=== PATIENT | male | born 1955 | race African-American/Black ===

== ENCOUNTER 2016-10-26 18:05 | Emergency (ER) | payer OTHER ==
[~2016-10-26] VITALS: Ht 182.9 cm; Wt 92.0 kg
[~2016-10-26 18:05] MED LIST: ASPI-1035 PO; ATOR20TA65 PO; LEVO100T9 PO; LISI10TA5 PO
[2016-10-26 22:18] LABS: BASOPHILS % 1.3 % (0.0-2.0); EOSINOPHILS % 3.8 % (0.0-5.0); HEMATOCRIT. 40.3 % (42.0-52.0); HEMOGLOBIN. 13.2 g/dL (14.0-18.0); LYMPHOCYTES % 42.5 % (20.0-50.0); MEAN CORPUSCULAR HEMOGLOBIN 29.1 pg (28.0-32.0); MEAN CORPUSCULAR HGB CONC 32.7 g/dL (31.0-37.0); MONOCYTES % 7.2 % (2.0-8.0); NEUTROPHILS % 45.2 % (40.0-76.0); PLATELET 291 x1000/uL (130-400); RED BLOOD CELL COUNT 4.53 mill/uL (4.7-6.1); RED CELL DISTRIBUTION WIDTH 14.4 % (11.6-14.6); WHITE BLOOD COUNT 5.2 x1000/uL (4.5-11.0)
[2016-10-26 22:35] LABS: ALANINE AMINOTRANSFERASE 24 IU/L (13-61); ALBUMIN 3.8 g/dL (3.4-5.0); ANION GAP 9; CALCIUM 9.1 mg/dL (8.5-10.1); CARBON DIOXIDE 30 mEq/L (21-32); CHLORIDE 106 mEq/L (98-107); INDEX HEMOLYSI 1 (1-3); INDEX ICTERIC 1 (1-4); INDEX LIPEMIC 1 (1-3); LIPASE 83 IU/L (73-393); TROPONIN I < 0.02 ng/mL (0.00-0.04); UREA NITROGEN BLOOD 12 mg/dL (7-21); eGFR > 60 mL/min (>60)
[2016-10-26] MEDS ORDERED: NITROGLYCERIN OINT 1GM/INCH UDPKT TD NR (22:45)
[2016-10-26 23:36] VITALS: BP 141/88
== END 2016-10-26 23:42 | disposition home or self-care (01) ==
LOC: ER 21:49
DX: R07.89 Other chest pain (principal); R06.02 Shortness of breath; I10 Essential (primary) hypertension; E03.9 Hypothyroidism, unspecified; Z88.8 Allergy status to other drugs, medicaments and biological substances; Z79.82 Long term (current) use of aspirin; Z79.899 Other long term (current) drug therapy; Z90.79 Acquired absence of other genital organ(s); Z98.890 Other specified postprocedural states
CPT/HCPCS: 36415; 71010; 80053; 83690; 84484; 85025; 93005; 99285; Z7610

== ENCOUNTER 2016-12-23 07:04 | Emergency (ER) | payer SELFPAY ==
[~2016-12-23] VITALS: Ht 182.9 cm; Wt 97.0 kg
[2016-12-23 09:44] VITALS: BP 136/97
== END 2016-12-23 09:57 | disposition home or self-care (01) ==
LOC: ER 08:06
DX: I10 Essential (primary) hypertension (principal); E78.00 Pure hypercholesterolemia, unspecified; Z98.890 Other specified postprocedural states; Z92.29 Personal history of other drug therapy
CPT/HCPCS: 93005; 99283

== ENCOUNTER 2016-12-29 12:57 | Emergency (ER) | payer SELFPAY ==
[~2016-12-29] VITALS: Ht 172.7 cm; Wt 70.0 kg
[2016-12-29 14:19] VITALS: BP 142/97
== END 2016-12-29 16:33 | disposition left against medical advice (07) ==
LOC: ER 14:44
DX: Z53.21 Procedure and treatment not carried out due to patient leaving prior to being seen by health care provider (principal)

== ENCOUNTER 2017-04-16 00:10 | Emergency (ER) | payer SELFPAY ==
[~2017-04-16] VITALS: Ht 182.9 cm; Wt 100.0 kg
[~2017-04-16 00:10] MED LIST changes: -ASPI-1035 PO; +ASPI-1159 PO
[2017-04-16 00:29] VITALS: BP 140/94
== END 2017-04-16 02:10 | disposition left against medical advice (07) ==
LOC: ER 00:10
DX: T78.40XA Allergy, unspecified, initial encounter (principal); Z53.21 Procedure and treatment not carried out due to patient leaving prior to being seen by health care provider

== ENCOUNTER 2017-04-19 17:04 | Emergency (ER) | payer SELFPAY ==
[~2017-04-19] VITALS: Ht 182.9 cm; Wt 100.0 kg
[2017-04-19 17:09] VITALS: BP 165/100
[2017-04-19] MEDS ORDERED: NEBI5TAB3 PO (17:15)
== END 2017-04-19 23:53 | disposition left against medical advice (07) ==
LOC: ER 17:04
DX: Z53.21 Procedure and treatment not carried out due to patient leaving prior to being seen by health care provider (principal)

== ENCOUNTER 2018-01-12 02:15 | Emergency (ER) | payer MEDICAID ==
[~2018-01-12] VITALS: Ht 182.9 cm; Wt 91.0 kg
[~2018-01-12 02:15] MED LIST changes: +ATOR20TA PO; -ATOR20TA65 PO; +DOCU-138 PO; -LISI10TA5 PO; +NEBI5TAB3 PO
[2018-01-12 02:33] VITALS: BP 141/97
== END 2018-01-12 05:32 | disposition left against medical advice (07) ==
LOC: ER 02:15
DX: I10 Essential (primary) hypertension (principal); Z53.21 Procedure and treatment not carried out due to patient leaving prior to being seen by health care provider

== ENCOUNTER 2018-09-10 15:56 | Emergency (ER) | payer MEDICAID, OTHER ==
[~2018-09-10] VITALS: Ht 177.8 cm; Wt 89.0 kg
[2018-09-10 18:05] VITALS: BP 141/91
== END 2018-09-10 18:08 | disposition home or self-care (01) ==
LOC: ER 15:56
DX: I10 Essential (primary) hypertension (principal)
CPT/HCPCS: 99283

== ENCOUNTER 2018-12-10 17:59 | Emergency (ER) | payer OTHER ==
[~2018-12-10] VITALS: Ht 182.9 cm; Wt 100.0 kg
[2018-12-10 18:42] VITALS: BP 136/93
== END 2018-12-11 02:02 | disposition left against medical advice (07) ==
LOC: ER 17:59
DX: I10 Essential (primary) hypertension (principal); Z53.21 Procedure and treatment not carried out due to patient leaving prior to being seen by health care provider
CPT/HCPCS: 93005

== ENCOUNTER 2019-03-25 16:09 | Inpatient (IN) | payer OTHER, MEDICAID ==
[~2019-03-25] VITALS: Ht 182.9 cm; Wt 103.0 kg
[~2019-03-25 16:09] MED LIST changes: -ASPI-1159 PO; +ASPI-1393 PO
[2019-03-25] MEDS ORDERED: ASPIRIN 81MG TABLET PO ONE (21:15)
[2019-03-25 21:33] LABS: BASOPHILS % 0.9 % (0.0-2.0); HEMATOCRIT. 40.6 % (42.0-52.0); HEMOGLOBIN. 13.7 g/dL (14.0-18.0); LYMPHOCYTES % 43.6 % (20.0-50.0); MEAN CORPUSCULAR VOLUME 89.1 fL (80.0-94.0); MEAN PLATELET VOLUME 7.1 fl (7.4-10.4); MONOCYTES % 5.9 % (2.0-8.0); NEUTROPHILS % 46.6 % (40.0-76.0); PLATELET 292 x1000/uL (130-400); RED BLOOD CELL COUNT 4.56 mill/uL (4.7-6.1)
[2019-03-25 21:37] LABS: CHLORIDE 106 mEq/L (98-107)
[2019-03-25 21:41] LABS: ETHANOL BLOOD < 10 mg/dL
[2019-03-25 21:43] LABS: D-DIMER 0.21 mg/L FEU (<0.50); INR 0.9; PROTHROMBIN TIME 9.7 sec (9.6-11.0)
[2019-03-26] MEDS ORDERED: MORPHINE SULFATE 2 MG/ML CPJ (NOT FOR IM USE) IV PRN
[2019-03-26] MEDS ORDERED: ONDANSETRON HCL 4MG/2ML INJ IV PRN
[2019-03-26] MEDS ORDERED: LORAZEPAM 2MG/ML CPJ IV PRN
[2019-03-26] MEDS ORDERED: DOCUSATE SODIUM 100MG CAPSULE PO PRN
[2019-03-26] MEDS ORDERED: DIPHENHYDRAMINE 50MG/ML VIAL IV PRN
[2019-03-26] MEDS ORDERED: GUAIFENESIN 200MG/10ML SUGAR FREE UDC PO PRN
[2019-03-26] MEDS ORDERED: ACETAMINOPHEN 325MG TABLET PO PRN
[2019-03-26] MEDS ORDERED: HYDROCODONE/ACETAMINOPHEN 10/325MG TABLET PO PRN
[2019-03-26] MEDS ORDERED: NA PHOS,M-B/NA PHOS,DI-BA ENEMA 118ML PR PRN
[2019-03-26] MEDS ORDERED: MAGNESIUM/ALUMINUM HYDROXIDE/SIMETHICONE 30ML UDC PO PRN
[2019-03-26] MEDS ORDERED: HYDRALAZINE 20MG/ML VIAL IV PRN
[2019-03-26] MEDS ORDERED: IPRATROPIUM/ALBUTEROL 0.5-3(2.5)MG/3ML NEB INH PRN
[2019-03-26 00:45] VITALS: BP 123/92
[2019-03-26 01:05] LABS: *AMPHETAMINES SCREEN URINE NEGATIVE (NEGATIVE); *BARBITURATES SCREEN URINE NEGATIVE (NEGATIVE)
[2019-03-26 01:06] LABS: *BENZODIAZEPINES SCREEN URINE NEGATIVE (NEGATIVE); *COCAINE SCREEN URINE NEGATIVE (NEGATIVE); METHADONE URINE SCREEN NEGATIVE (NEGATIVE); OPIATES URINE SCREEN NEGATIVE (NEGATIVE); PHENCYCLIDINE URINE SCREEN NEGATIVE (NEGATIVE)
[2019-03-26 01:07] LABS: CANNABINOID URINE SCREEN NEGATIVE (NEGATIVE)
[2019-03-26 04:00] VITALS: BP 129/80
[2019-03-26] MEDS ORDERED: SODIUM CHLORIDE 0.9% INJ 3ML FLUSH IVF SCH (06:00)
[2019-03-26 06:57] LABS: BASOPHILS % 0.5 % (0.0-2.0); EOSINOPHILS % 2.8 % (0.0-5.0); HEMATOCRIT. 39.1 % (42.0-52.0); HEMOGLOBIN. 13.5 g/dL (14.0-18.0); LYMPHOCYTES % 47.5 % (20.0-50.0); MEAN CORPUSCULAR HEMOGLOBIN 30.6 pg (28.0-32.0); MEAN PLATELET VOLUME 7.6 fl (7.4-10.4); MONOCYTES % 7.2 % (2.0-8.0); PLATELET 273 x1000/uL (130-400); RED CELL DISTRIBUTION WIDTH 14.1 % (11.6-14.6)
[2019-03-26 07:43] LABS: CHLORIDE 109 mEq/L (98-107)
[2019-03-26 07:52] LABS: LDL CHOLESTEROL 85 mg/dL (5-100)
[2019-03-26 07:55] LABS: CREATINE KINASE 250 IU/L (39-308); CREATINE KINASE MB FRACTION 1.6 ng/mL (0.5-3.6); T4 FREE 1.12 ng/dL (0.76-1.46)
[2019-03-26 07:56] LABS: HDL CHOLESTEROL 48 mg/dL (40-59)
[2019-03-26 08:00] VITALS: BP 129/92
[2019-03-26] MEDS ORDERED: ENOXAPARIN 30MG/0.3ML SYR SUBCUT SCH (09:00)
[2019-03-26] MEDS ORDERED: ASPIRIN 81MG EC TABLET PO SCH (09:00)
[2019-03-26] MEDS ORDERED: MEDICATION NOT ON FORMULARY EA (Docusate Sodium (Colace) 100 MG) PO PRN (10:30)
[2019-03-26 10:45] VITALS: BP 129/92
[2019-03-26] MEDS ORDERED: LEVOTHYROXINE SODIUM 100MCG TABLET PO SCH (11:00)
[2019-03-26] MEDS ORDERED: NEBIVOLOL HCL 5 MG TABLET PO SCH (11:30)
[2019-03-26] MEDS ORDERED: ATORVASTATIN CALCIUM 20MG TABLET PO SCH (21:00)
== END 2019-03-26 12:10 | disposition home or self-care (01) | DRG 304 ==
LOC: ER 16:09 → 6WST 23:11 → EDBEDREQ 23:13 → EDBEDREQTM 23:13
PROVIDERS: ADMIT Internal Medicine; ATTEND Internal Medicine
DX: I10 Essential (primary) hypertension (principal); J98.51 Mediastinitis; R00.2 Palpitations; E03.9 Hypothyroidism, unspecified; E78.5 Hyperlipidemia, unspecified; Z79.82 Long term (current) use of aspirin; Z82.49 Family history of ischemic heart disease and other diseases of the circulatory system; Z79.899 Other long term (current) drug therapy; Z88.8 Allergy status to other drugs, medicaments and biological substances
CPT/HCPCS: 36415; 71045; 80061; 80305; 80320; 82550; 82553; 83036; 83880; 84439; 84443; 84484; 85379; 93005; 99285; J1650; G0480

== ENCOUNTER 2020-03-23 23:25 | Emergency (ER) | payer OTHER, MEDICAID ==
[~2020-03-23] VITALS: Ht 182.9 cm; Wt 104.0 kg
[~2020-03-23 23:25] MED LIST changes: -ASPI-1393 PO; +ASPI-1497 PO
[2020-03-24] MEDS ORDERED: SODIUM CHLORIDE 0.9% 1,000 ML IV ONE
[2020-03-24 00:36] LABS: BASOPHILS % 1.1 % (0.0-2.0); EOSINOPHILS % 1.9 % (0.0-5.0); HEMATOCRIT. 40.9 % (42.0-52.0); HEMOGLOBIN. 13.9 g/dL (14.0-18.0); LYMPHOCYTES % 42.3 % (20.0-50.0); MEAN CORPUSCULAR HEMOGLOBIN 30.1 pg (28.0-32.0); MEAN CORPUSCULAR VOLUME 88.9 fL (80.0-94.0); MEAN PLATELET VOLUME 6.7 fl (7.4-10.4); MONOCYTES % 6.1 % (2.0-8.0); NEUTROPHILS % 48.6 % (40.0-76.0); PLATELET 274 x1000/uL (130-400); RED CELL DISTRIBUTION WIDTH 13.6 % (11.6-14.6)
[2020-03-24 00:45] LABS: CHLORIDE 105 mEq/L (98-107)
[2020-03-24 00:48] LABS: ETHANOL BLOOD < 10 mg/dL
[2020-03-24 02:26] LABS: CLARITY URINE CLEAR (CLEAR); COLOR URINE YELLOW (YELLOW); KETONES URINE NEGATIVE (NEGATIVE); LEUKOCYTE ESTERASE URINE 1+ (NEGATIVE); NITRITE URINE NEGATIVE (NEGATIVE); OCCULT BLOOD URINE NEGATIVE (NEGATIVE); PH URINE 5.5 (4.5-8.0); PROTEIN URINE NEGATIVE (NEGATIVE); SPECIFIC GRAVITY URINE 1.022 (1.005-1.030); UROBILINOGEN URINE 0.2 E.U./dL (0.2-1.0)
[2020-03-24 02:37] LABS: *AMPHETAMINES SCREEN URINE NEGATIVE (NEGATIVE); *BARBITURATES SCREEN URINE NEGATIVE (NEGATIVE); *BENZODIAZEPINES SCREEN URINE NEGATIVE (NEGATIVE); *COCAINE SCREEN URINE NEGATIVE (NEGATIVE)
[2020-03-24 02:38] LABS: CANNABINOID URINE SCREEN NEGATIVE (NEGATIVE); METHADONE URINE SCREEN NEGATIVE (NEGATIVE); OPIATES URINE SCREEN NEGATIVE (NEGATIVE); PHENCYCLIDINE URINE SCREEN NEGATIVE (NEGATIVE)
[2020-03-24] MEDS ORDERED: CEFTRIAXONE 1 G PREMIX 50 ML IV ONE (03:45)
[2020-03-24] MEDS ORDERED: NA PHOS,M-B/NA PHOS,DI-BA ENEMA 118ML PR PRN (07:30)
[2020-03-24] MEDS ORDERED: MAGNESIUM/ALUMINUM HYDROXIDE/SIMETHICONE 30ML UDC PO PRN (07:30)
[2020-03-24] MEDS ORDERED: ACETAMINOPHEN 325MG TABLET PO PRN ×2 (07:30)
[2020-03-24] MEDS ORDERED: CLONIDINE 0.1MG TABLET PO PRN (07:30)
[2020-03-24] MEDS ORDERED: DIPHENHYDRAMINE 50MG/ML VIAL IV PRN (07:30)
[2020-03-24] MEDS ORDERED: ENOXAPARIN 40MG/0.4ML SYR SUBCUT SCH (09:00)
[2020-03-24 09:57] VITALS: BP 127/79
[2020-03-25] MEDS ORDERED: CEFTRIAXONE 1 G PREMIX 50 ML IV SCH (06:00)
== END 2020-03-24 11:27 | disposition left against medical advice (07) ==
LOC: ER 23:25 → EDBEDREQ 03-24 03:50 → ENRESERV 03-24 10:32 → CANRESERV 03-24 10:32 → ER 03-24 11:27 → CANBEDREQ 03-24 12:39
DX: R55 Syncope and collapse (principal); N39.0 Urinary tract infection, site not specified; E78.00 Pure hypercholesterolemia, unspecified; I10 Essential (primary) hypertension; Z79.82 Long term (current) use of aspirin; Z79.899 Other long term (current) drug therapy; Z88.8 Allergy status to other drugs, medicaments and biological substances
CPT/HCPCS: 36415; 70450; 71045; 80053; 80305; 80320; 81003; 83605; 83880; 84484; 85025; 96361; 96365; 99285; J0696; J7030; G0480

== ENCOUNTER 2020-04-06 11:53 | Emergency (ER) | payer OTHER, MEDICAID ==
[~2020-04-06] VITALS: Ht 182.9 cm; Wt 102.0 kg
[2020-04-06 14:29] LABS: BASOPHILS % 0.5 % (0.0-2.0); HEMATOCRIT. 40.9 % (42.0-52.0); HEMOGLOBIN. 13.7 g/dL (14.0-18.0); LYMPHOCYTES % 44.8 % (20.0-50.0); MEAN CORPUSCULAR HEMOGLOBIN 29.9 pg (28.0-32.0); MEAN CORPUSCULAR VOLUME 89.4 fL (80.0-94.0); MEAN PLATELET VOLUME 8.5 fl (7.4-10.4); MONOCYTES % 6.1 % (2.0-8.0); NEUTROPHILS % 46.6 % (40.0-76.0); PLATELET 284 x1000/uL (130-400); RED BLOOD CELL COUNT 4.58 mill/uL (4.7-6.1); RED CELL DISTRIBUTION WIDTH 14.1 % (11.6-14.6)
[2020-04-06 14:40] LABS: CHLORIDE 108 mEq/L (98-107)
[2020-04-06 16:30] VITALS: BP 132/90
== END 2020-04-06 16:42 | disposition home or self-care (01) ==
LOC: ER 11:53
DX: R53.1 Weakness (principal); I10 Essential (primary) hypertension; E78.00 Pure hypercholesterolemia, unspecified; Z88.8 Allergy status to other drugs, medicaments and biological substances
CPT/HCPCS: 36415; 71045; 80053; 83880; 84484; 85025; 93005; 99285

== ENCOUNTER 2020-05-04 10:23 | Emergency (ER) | payer OTHER, MEDICAID ==
[~2020-05-04] VITALS: Ht 177.8 cm; Wt 97.0 kg
[2020-05-04] MEDS ORDERED: SODIUM CHLORIDE 0.9% 500 ML IV ONE (10:45)
[2020-05-04 10:57] LABS: BASOPHILS % 1.1 % (0.0-2.0); EOSINOPHILS % 4.7 % (0.0-5.0); HEMATOCRIT. 41.5 % (42.0-52.0); LYMPHOCYTES % 42.5 % (20.0-50.0); MEAN CORPUSCULAR VOLUME 89.1 fL (80.0-94.0); MEAN PLATELET VOLUME 7.1 fl (7.4-10.4); NEUTROPHILS % 44.7 % (40.0-76.0); PLATELET 307 x1000/uL (130-400); RED BLOOD CELL COUNT 4.66 mill/uL (4.7-6.1)
[2020-05-04 11:01] LABS: CHLORIDE 110 mEq/L (98-107)
[2020-05-04 12:02] VITALS: BP 145/98
== END 2020-05-04 12:12 | disposition home or self-care (01) ==
LOC: ER 10:23
DX: R42 Dizziness and giddiness (principal); I10 Essential (primary) hypertension; E78.00 Pure hypercholesterolemia, unspecified; E03.9 Hypothyroidism, unspecified; Z88.8 Allergy status to other drugs, medicaments and biological substances; Z79.82 Long term (current) use of aspirin; T44.7X5A Adverse effect of beta-adrenoreceptor antagonists, initial encounter; Y92.018 Other place in single-family (private) house as the place of occurrence of the external cause
CPT/HCPCS: 36415; 80053; 85025; 93005; 96360; 99284; J7040

== ENCOUNTER 2020-07-07 12:50 | Emergency (ER) | payer OTHER, MEDICAID ==
[~2020-07-07] VITALS: Ht 175.3 cm; Wt 104.0 kg
[2020-07-07 13:14] VITALS: BP 140/92
== END 2020-07-07 13:30 | disposition home or self-care (01) ==
LOC: ER 13:28
DX: I10 Essential (primary) hypertension (principal); E78.00 Pure hypercholesterolemia, unspecified; E03.9 Hypothyroidism, unspecified; Z79.82 Long term (current) use of aspirin; Z79.899 Other long term (current) drug therapy; Z88.8 Allergy status to other drugs, medicaments and biological substances
CPT/HCPCS: 93005; 99283

== ENCOUNTER 2020-09-02 04:34 | Emergency (ER) | payer BC, MEDICARE, MEDICAID ==
[~2020-09-02] VITALS: Ht 182.9 cm; Wt 104.0 kg
[2020-09-02] MEDS ORDERED: NEBIVOLOL HCL 5 MG TABLET PO STA (06:43)
[2020-09-02 06:44] LABS: BASOPHILS % 0.6 % (0.0-2.0); EOSINOPHILS % 2.4 % (0.0-5.0); HEMATOCRIT. 41.7 % (42.0-52.0); HEMOGLOBIN. 13.8 g/dL (14.0-18.0); LYMPHOCYTES % 49.5 % (20.0-50.0); MEAN CORPUSCULAR HEMOGLOBIN 29.2 pg (28.0-32.0); MEAN CORPUSCULAR VOLUME 88.3 fL (80.0-94.0); MEAN PLATELET VOLUME 6.5 fl (7.4-10.4); MONOCYTES % 5.8 % (2.0-8.0); NEUTROPHILS % 41.7 % (40.0-76.0); PLATELET 296 x1000/uL (130-400); RED BLOOD CELL COUNT 4.73 mill/uL (4.7-6.1); RED CELL DISTRIBUTION WIDTH 13.7 % (11.6-14.6)
[2020-09-02 06:55] LABS: CHLORIDE 109 mEq/L (98-107)
[2020-09-02] MEDS ORDERED: NEBI10TA2 MT (07:49)
[2020-09-02 08:24] VITALS: BP 165/140
== END 2020-09-02 08:23 | disposition home or self-care (01) ==
LOC: ER 04:34
DX: I10 Essential (primary) hypertension (principal); R00.2 Palpitations; E78.5 Hyperlipidemia, unspecified; E03.9 Hypothyroidism, unspecified; Z79.899 Other long term (current) drug therapy; Z79.82 Long term (current) use of aspirin
CPT/HCPCS: 36415; 71045; 80053; 83880; 84484; 85025; 85379; 93005; 99285

== ENCOUNTER 2021-05-20 01:44 | Emergency (ER) | payer BC, OTHER, MEDICAID ==
[~2021-05-20] VITALS: Ht 182.9 cm; Wt 105.0 kg
[~2021-05-20 01:44] MED LIST changes: +NEBI10TA2 MT
[2021-05-20 04:48] LABS: BASOPHILS % 0.4 % (0.0-2.0); HEMATOCRIT. 40.9 % (42.0-52.0); HEMOGLOBIN. 13.9 g/dL (14.0-18.0); LYMPHOCYTES % 44.7 % (20.0-50.0); MEAN CORPUSCULAR VOLUME 88.3 fL (80.0-94.0); MEAN PLATELET VOLUME 7.2 fl (7.4-10.4); MONOCYTES % 6.9 % (2.0-8.0); PLATELET 278 x1000/uL (130-400); RED BLOOD CELL COUNT 4.64 mill/uL (4.7-6.1); RED CELL DISTRIBUTION WIDTH 14.6 % (11.6-14.6)
[2021-05-20 05:03] LABS: CHLORIDE 106 mEq/L (98-107)
[2021-05-20 06:24] VITALS: BP 126/63
== END 2021-05-20 06:37 | disposition home or self-care (01) ==
LOC: ER 01:44
DX: R07.89 Other chest pain (principal); I10 Essential (primary) hypertension; E78.00 Pure hypercholesterolemia, unspecified; Z88.8 Allergy status to other drugs, medicaments and biological substances; Z79.82 Long term (current) use of aspirin; Z86.39 Personal history of other endocrine, nutritional and metabolic disease
CPT/HCPCS: 36415; 71045; 80053; 83880; 84484; 85025; 93005; 99285

== ENCOUNTER 2022-02-23 15:31 | Emergency (ER) | payer BC, OTHER ==
[~2022-02-23] VITALS: Ht 175.3 cm; Wt 101.0 kg
[2022-02-23 15:57] VITALS: BP 165/108
== END 2022-02-23 17:01 | disposition home or self-care (01) ==
LOC: ER 15:31
DX: D37.1 Neoplasm of uncertain behavior of stomach (principal); I10 Essential (primary) hypertension; E78.00 Pure hypercholesterolemia, unspecified; Z85.46 Personal history of malignant neoplasm of prostate
CPT/HCPCS: 99281

== ENCOUNTER 2022-11-18 09:37 | Emergency (ER) | payer OTHER, MEDICAID ==
[~2022-11-18] VITALS: Ht 182.9 cm; Wt 106.0 kg
[2022-11-18 09:45] VITALS: BP 156/104
[2022-11-18 10:40] LABS: CLARITY URINE CLEAR (CLEAR); COLOR URINE DARK YELLOW (YELLOW); KETONES URINE NEGATIVE (NEGATIVE); LEUKOCYTE ESTERASE URINE 1+ (NEGATIVE); NITRITE URINE POSITIVE (NEGATIVE); OCCULT BLOOD URINE NEGATIVE (NEGATIVE); PH URINE 5.5 (4.5-8.0); PROTEIN URINE NEGATIVE (NEGATIVE); SPECIFIC GRAVITY URINE 1.025 (1.005-1.030)
[2022-11-18] MEDS ORDERED: CEPHALEXIN 250MG CAPSULE PO SCH (11:30)
== END 2022-11-18 12:16 | disposition home or self-care (01) ==
LOC: ER 10:01
DX: R30.0 Dysuria (principal); I10 Essential (primary) hypertension; E78.00 Pure hypercholesterolemia, unspecified; Z86.39 Personal history of other endocrine, nutritional and metabolic disease
CPT/HCPCS: 81003; 99283

== ENCOUNTER 2022-12-16 13:19 | Emergency (ER) | payer BC, OTHER, MEDICAID ==
[~2022-12-16] VITALS: Ht 188 cm; Wt 105.0 kg
[~2022-12-16 13:19] MED LIST changes: +LOSA50TA41 MT; -NEBI10TA2 MT; +NEBI20TA2 MT; -NEBI5TAB3 PO
[2022-12-16] MEDS ORDERED: SODIUM CHLORIDE 0.9% 1,000 ML IV ONE (14:15)
[2022-12-16 14:32] LABS: BASOPHILS % 0.4 % (0.0-2.0); EOSINOPHILS % 1.9 % (0.0-5.0); HEMOGLOBIN. 14.5 g/dL (14.0-18.0); LYMPHOCYTES % 48.7 % (20.0-50.0); MEAN CORPUSCULAR HEMOGLOBIN 29.9 pg (28.0-32.0); MEAN CORPUSCULAR VOLUME 88.7 fL (80.0-94.0); MONOCYTES % 5.1 % (2.0-8.0); NEUTROPHILS % 43.9 % (40.0-76.0); PLATELET 341 x1000/uL (130-400); RED BLOOD CELL COUNT 4.85 mill/uL (4.7-6.1); RED CELL DISTRIBUTION WIDTH 14.2 % (11.6-14.6)
[2022-12-16 14:38] LABS: CHLORIDE 106 mEq/L (98-107)
[2022-12-16 16:00] VITALS: BP 163/107
[2022-12-16] MEDS ORDERED: HYDRALAZINE HCL 25MG TABLET PO ONE (17:00)
== END 2022-12-16 17:28 | disposition home or self-care (01) ==
LOC: ER 14:10
DX: R42 Dizziness and giddiness (principal); R00.1 Bradycardia, unspecified; E78.00 Pure hypercholesterolemia, unspecified; I10 Essential (primary) hypertension; Z88.8 Allergy status to other drugs, medicaments and biological substances; Z79.899 Other long term (current) drug therapy; Z86.39 Personal history of other endocrine, nutritional and metabolic disease
CPT/HCPCS: 36415; 71045; 80053; 82962; 83880; 84443; 84484; 85025; 93005; 96360; 96361; 99285; J7030; Z7610

== ENCOUNTER 2022-12-18 10:54 | Emergency (ER) | payer BC, OTHER, MEDICAID ==
[~2022-12-18] VITALS: Ht 175.3 cm; Wt 75.0 kg
[2022-12-18] MEDS ORDERED: HYDRALAZINE 20MG/ML VIAL IV ONE (11:30)
[2022-12-18 11:52] LABS: BASOPHILS % 0.6 % (0.0-2.0); CHLORIDE 108 mEq/L (98-107); EOSINOPHILS % 1.5 % (0.0-5.0); HEMATOCRIT. 42.2 % (42.0-52.0); HEMOGLOBIN. 14.1 g/dL (14.0-18.0); LYMPHOCYTES % 40.2 % (20.0-50.0); MEAN CORPUSCULAR HEMOGLOBIN 29.4 pg (28.0-32.0); MEAN CORPUSCULAR VOLUME 88.1 fL (80.0-94.0); MONOCYTES % 6.4 % (2.0-8.0); NEUTROPHILS % 51.3 % (40.0-76.0); PLATELET 325 x1000/uL (130-400); RED BLOOD CELL COUNT 4.79 mill/uL (4.7-6.1); RED CELL DISTRIBUTION WIDTH 14.1 % (11.6-14.6)
[2022-12-18 12:04] LABS: INR 0.9
[2022-12-18 14:20] VITALS: BP 153/90
== END 2022-12-18 14:20 | disposition home or self-care (01) ==
LOC: ER 11:15
DX: I10 Essential (primary) hypertension (principal); E78.00 Pure hypercholesterolemia, unspecified; Z88.8 Allergy status to other drugs, medicaments and biological substances; Z86.39 Personal history of other endocrine, nutritional and metabolic disease
CPT/HCPCS: 36415; 70450; 71045; 80053; 84484; 85025; 85610; 93005; 96374; 99285; J0360; Z7610

== ENCOUNTER 2022-12-21 16:32 | Emergency (ER) | payer BC, OTHER, MEDICAID ==
[~2022-12-21] VITALS: Ht 182.9 cm; Wt 105.0 kg
[2022-12-21 16:43] VITALS: BP 157/92
[2022-12-21] MEDS ORDERED: HYDRALAZINE HCL 10MG TABLET PO ONE (21:45)
== END 2022-12-22 00:34 | disposition home or self-care (01) ==
LOC: ER 16:32
DX: I10 Essential (primary) hypertension (principal); E78.00 Pure hypercholesterolemia, unspecified; Z79.899 Other long term (current) drug therapy
CPT/HCPCS: 99283

== ENCOUNTER 2023-01-22 14:05 | Emergency (ER) | payer BC, OTHER ==
[~2023-01-22] VITALS: Ht 172.7 cm; Wt 100.0 kg
[2023-01-22 15:20] LABS: BASOPHILS % 0.5 % (0.0-2.0); EOSINOPHILS % 1.3 % (0.0-5.0); HEMATOCRIT. 37.7 % (42.0-52.0); HEMOGLOBIN. 12.7 g/dL (14.0-18.0); LYMPHOCYTES % 43.7 % (20.0-50.0); MEAN CORPUSCULAR VOLUME 89.2 fL (80.0-94.0); MEAN PLATELET VOLUME 7.4 fl (7.4-10.4); NEUTROPHILS % 48.5 % (40.0-76.0); PLATELET 300 x1000/uL (130-400); RED BLOOD CELL COUNT 4.22 mill/uL (4.7-6.1); RED CELL DISTRIBUTION WIDTH 13.8 % (11.6-14.6)
[2023-01-22 15:38] LABS: CHLORIDE 107 mEq/L (98-107)
[2023-01-22 17:25] VITALS: BP 145/85
== END 2023-01-22 17:27 | disposition home or self-care (01) ==
LOC: ER 14:05
DX: R07.89 Other chest pain (principal); I10 Essential (primary) hypertension; E03.9 Hypothyroidism, unspecified; E78.00 Pure hypercholesterolemia, unspecified; Z88.8 Allergy status to other drugs, medicaments and biological substances; Z88.2 Allergy status to sulfonamides; Z86.39 Personal history of other endocrine, nutritional and metabolic disease
CPT/HCPCS: 36415; 71045; 80053; 83880; 84484; 85025; 93005; 99285

== ENCOUNTER 2023-12-31 10:39 | Emergency (ER) | payer BC, OTHER ==
[~2023-12-31] VITALS: Ht 182.9 cm; Wt 104.5 kg
[~2023-12-31 10:39] MED LIST changes: -NEBI20TA2 MT; +NEBI20TA4 MT
[2023-12-31 10:45] VITALS: BP 160/99; PULSE 69; RESP 65; TEMP 98.4; O2SAT 97
[2023-12-31 11:11] LABS: BASOPHILS % 0.7 % (0.0-2.0); EOSINOPHILS % 1.8 % (0.0-5.0); HEMATOCRIT. 42.2 % (42.0-52.0); HEMOGLOBIN. 14.6 g/dL (14.0-18.0); LYMPHOCYTES % 37.9 % (20.0-50.0); MEAN CORPUSCULAR HEMOGLOBIN 30.6 pg (28.0-32.0); MEAN CORPUSCULAR HGB CONC 34.5 g/dL (31.0-37.0); MEAN CORPUSCULAR VOLUME 88.5 fL (80.0-94.0); MONOCYTES % 3.9 % (2.0-8.0); NEUTROPHILS % 55.7 % (40.0-76.0); PLATELET 339 x1000/uL (130-400); RED BLOOD CELL COUNT 4.76 mill/uL (4.7-6.1); RED CELL DISTRIBUTION WIDTH 14.1 % (11.6-14.6); WHITE BLOOD COUNT 5.5 x1000/uL (4.5-11.0)
[2023-12-31 11:21] LABS: CHLORIDE 105 mEq/L (98-107); POTASSIUM 4.3 mEq/L (3.5-5.1); SODIUM 139 mEq/L (136-145)
[2023-12-31 11:23] LABS: CALCIUM 10.1 mg/dL (8.7-10.4); CARBON DIOXIDE 26 mEq/L (21-32)
[2023-12-31 11:28] LABS: CREATININE 1.1 mg/dL (0.6-1.3); GLUCOSE 140 mg/dL (70-105); UREA NITROGEN BLOOD 11 mg/dL (9-23)
[2023-12-31 12:36] LABS: TRIGLYCERIDE 117 mg/dL (0-150)
[2023-12-31 12:37] LABS: LDL CHOLESTEROL 152 mg/dL (5-100)
[2023-12-31 12:38] LABS: CHOLESTEROL 224 mg/dL (<200); HDL CHOLESTEROL 49 mg/dL (>55)
[2023-12-31 13:03] LABS: TROPONIN I HIGH SENSITIVITY < 4 ng/L (3.0-53)
[2023-12-31 14:36] LABS: TROPONIN I HIGH SENSITIVITY < 4 ng/L (3.0-53)
[2023-12-31 14:48] LABS: CLARITY URINE CLEAR (CLEAR); COLOR URINE YELLOW (YELLOW); GLUCOSE URINE NEGATIVE (NEGATIVE); KETONES URINE NEGATIVE (NEGATIVE); LEUKOCYTE ESTERASE URINE TRACE (NEGATIVE); NITRITE URINE NEGATIVE (NEGATIVE); OCCULT BLOOD URINE NEGATIVE (NEGATIVE); PH URINE 5.5 (4.5-8.0); PROTEIN URINE NEGATIVE (NEGATIVE); SPECIFIC GRAVITY URINE 1.032 (1.005-1.030); UROBILINOGEN URINE 0.2 E.U./dL (0.2-1.0)
[2023-12-31 15:13] LABS: BACTERIA URINE 1+; RBC URINE NONE SEEN /hpf (0-2); YEAST URINE NONE SEEN
[2023-12-31 15:14] LABS: SQUAMOUS EPITHELIAL CELL URINE 1+ /lpf (RARE/1+)
== END 2023-12-31 15:23 | disposition home or self-care (01) ==
LOC: ER 10:39
DX: I10 Essential (primary) hypertension (principal); E78.5 Hyperlipidemia, unspecified; E78.00 Pure hypercholesterolemia, unspecified; Z88.8 Allergy status to other drugs, medicaments and biological substances; Z88.1 Allergy status to other antibiotic agents; Z88.3 Allergy status to other anti-infective agents; Z79.899 Other long term (current) drug therapy; Z86.39 Personal history of other endocrine, nutritional and metabolic disease; Z98.890 Other specified postprocedural states
CPT/HCPCS: 36415; 71045; 80048; 80061; 81003; 83880; 84484; 85025; 99284

== ENCOUNTER 2024-11-04 00:41 | Emergency (ER) | payer MEDICARE, MEDICAID ==
[~2024-11-04] VITALS: Ht 182.9 cm; Wt 109.0 kg
[~2024-11-04 00:41] MED LIST changes: +ATOR20TA MT; -ATOR20TA PO; -DOCU-138 PO; -LOSA50TA41 MT; +NEBI10TA10 PO; -NEBI20TA4 MT
[2024-11-04 00:44] VITALS: TEMP 36.8; O2SAT 98
[2024-11-04 02:28] LABS: CHLORIDE 104 mEq/L (98-107); POTASSIUM 4.1 mEq/L (3.5-5.1); SODIUM 140 mEq/L (136-145)
[2024-11-04 02:29] LABS: CALCIUM 9.6 mg/dL (8.7-10.4); CARBON DIOXIDE 28 mEq/L (21-32)
[2024-11-04 02:32] LABS: BASOPHILS % 0.5 % (0.0-2.0); HEMOGLOBIN. 13.2 g/dL (14.0-18.0); LYMPHOCYTES % 38.8 % (20.0-50.0); MEAN CORPUSCULAR HEMOGLOBIN 29.2 pg (28.0-32.0); MEAN CORPUSCULAR VOLUME 88.8 fL (80.0-94.0); MEAN PLATELET VOLUME 7.6 fl (7.4-10.4); MONOCYTES % 7.4 % (2.0-8.0); NEUTROPHILS % 51.3 % (40.0-76.0); PLATELET 300 x1000/uL (130-400); RED BLOOD CELL COUNT 4.51 mill/uL (4.7-6.1); RED CELL DISTRIBUTION WIDTH 14.2 % (11.6-14.6)
[2024-11-04 02:34] LABS: CREATININE 1.1 mg/dL (0.6-1.3); GLUCOSE 109 mg/dL (70-105); UREA NITROGEN BLOOD 14 mg/dL (9-23)
[2024-11-04 02:36] LABS: ALANINE AMINOTRANSFERASE 23 IU/L (10-49); ALBUMIN 4.2 g/dL (3.2-4.8); ASPARTATE AMINOTRANSFERASE 15 IU/L (<34); BILIRUBIN TOTAL 0.3 mg/dL (0.1-1.0); PROTEIN TOTAL 7.2 g/dL (6.0-8.3)
[2024-11-04 02:41] LABS: BILIRUBIN DIRECT < 0.1 mg/dL (<=3.0); TROPONIN I HIGH SENSITIVITY < 4 ng/L (3.0-53)
[2024-11-04 02:56] LABS: INR 0.9; PROTHROMBIN TIME 9.7 sec (9.6-11.0)
[2024-11-04 04:16] LABS: TROPONIN I HIGH SENSITIVITY 5 ng/L (3.0-53)
[2024-11-04 06:54] VITALS: BP 135/97; PULSE 55; RESP 16; O2SAT 95
== END 2024-11-04 06:59 | disposition home or self-care (01) ==
LOC: ER 00:47
DX: R55 Syncope and collapse (principal); E03.9 Hypothyroidism, unspecified; E78.00 Pure hypercholesterolemia, unspecified; I11.0 Hypertensive heart disease with heart failure; I50.9 Heart failure, unspecified; Z79.82 Long term (current) use of aspirin; Z79.890 Hormone replacement therapy; Z79.899 Other long term (current) drug therapy; Z88.8 Allergy status to other drugs, medicaments and biological substances
CPT/HCPCS: 36415; 71045; 80048; 80076; 83880; 84484; 85025; 93005; 99285; A4606

== ENCOUNTER 2025-04-06 14:13 | Emergency (ER) | payer MEDICARE, MEDICAID ==
[~2025-04-06] VITALS: Ht 180.3 cm; Wt 110.0 kg
[2025-04-06 14:20] VITALS: O2SAT 95
[2025-04-06 16:14] LABS: BASOPHILS % 0.5 % (0.0-2.0); EOSINOPHILS % 1.6 % (0.0-5.0); HEMATOCRIT. 40.3 % (42.0-52.0); HEMOGLOBIN. 13.1 g/dL (14.0-18.0); LYMPHOCYTES % 31.7 % (20.0-50.0); MEAN PLATELET VOLUME 7.4 fl (7.4-10.4); MONOCYTES % 7.4 % (2.0-8.0); NEUTROPHILS % 58.8 % (40.0-76.0); PLATELET 313 x1000/uL (130-400); RED BLOOD CELL COUNT 4.49 mill/uL (4.7-6.1); RED CELL DISTRIBUTION WIDTH 14.3 % (11.6-14.6)
[2025-04-06 16:27] LABS: INR 0.9
[2025-04-06 16:28] LABS: CREATININE 0.9 mg/dL (0.6-1.3)
[2025-04-06 16:29] LABS: UREA NITROGEN BLOOD 12 mg/dL (9-23)
[2025-04-06 16:30] LABS: ASPARTATE AMINOTRANSFERASE 14 IU/L (<34); BILIRUBIN DIRECT 0.2 mg/dL (<=3.0)
[2025-04-06 16:31] LABS: BILIRUBIN TOTAL 0.5 mg/dL (0.1-1.0); PROTEIN TOTAL 6.8 g/dL (6.0-8.3); TROPONIN I HIGH SENSITIVITY < 4 ng/L (3.0-53)
[2025-04-06 17:59] LABS: TROPONIN I HIGH SENSITIVITY < 4 ng/L (3.0-53)
[2025-04-06 19:47] VITALS: BP 178/106; PULSE 75; RESP 18; TEMP 36.7; O2SAT 99
[2025-04-18] MEDS ORDERED: IBUP-2030 PO (15:02)
[2025-04-18] MEDS ORDERED: HYDR-4009 PO (15:02)
== END 2025-04-06 19:50 | disposition home or self-care (01) ==
LOC: ER 14:41
DX: R53.1 Weakness (principal); E78.00 Pure hypercholesterolemia, unspecified; E03.9 Hypothyroidism, unspecified; I10 Essential (primary) hypertension; R06.02 Shortness of breath; Z79.899 Other long term (current) drug therapy; Z88.8 Allergy status to other drugs, medicaments and biological substances; Z98.890 Other specified postprocedural states
CPT/HCPCS: 36415; 71045; 80048; 80076; 83880; 84484; 85025; 93005; 99285

== ENCOUNTER 2025-04-30 14:07 | Emergency (ER) | payer MEDICARE, MEDICAID ==
[~2025-04-30] VITALS: Ht 172.7 cm; Wt 91.0 kg
[2025-04-30 14:31] VITALS: O2SAT 97
[2025-04-30 15:23] LABS: BASOPHILS % 1.0 % (0.0-2.0); EOSINOPHILS % 2.2 % (0.0-5.0); HEMATOCRIT. 40.2 % (42.0-52.0); HEMOGLOBIN. 13.6 g/dL (14.0-18.0); LYMPHOCYTES % 40.3 % (20.0-50.0); MEAN PLATELET VOLUME 7.2 fl (7.4-10.4); MONOCYTES % 6.9 % (2.0-8.0); NEUTROPHILS % 49.6 % (40.0-76.0); PLATELET 305 x1000/uL (130-400); RED BLOOD CELL COUNT 4.50 mill/uL (4.7-6.1); RED CELL DISTRIBUTION WIDTH 14.6 % (11.6-14.6)
[2025-04-30 15:43] LABS: CREATININE 1.1 mg/dL (0.6-1.3)
[2025-04-30 15:44] LABS: ETHANOL BLOOD < 10 mg/dL (<10); UREA NITROGEN BLOOD 12 mg/dL (9-23)
[2025-04-30 15:45] LABS: ASPARTATE AMINOTRANSFERASE 17 IU/L (<34)
[2025-04-30 15:46] LABS: BILIRUBIN DIRECT 0.1 mg/dL (<=3.0); BILIRUBIN TOTAL 0.4 mg/dL (0.1-1.0); PROTEIN TOTAL 7.3 g/dL (6.0-8.3)
[2025-04-30] MEDS: MAGNESIUM/ALUMINUM HYDROXIDE/SIMETHICONE 30ML UDC PO SCH (17:25)
[2025-04-30] MEDS: FAMOTIDINE 20MG TABLET PO SCH (17:25)
[2025-04-30 18:21] LABS: CLARITY URINE CLEAR (CLEAR); COLOR URINE YELLOW (YELLOW); GLUCOSE URINE NEGATIVE (NEGATIVE); KETONES URINE NEGATIVE (NEGATIVE); LEUKOCYTE ESTERASE URINE NEGATIVE (NEGATIVE); NITRITE URINE NEGATIVE (NEGATIVE); OCCULT BLOOD URINE NEGATIVE (NEGATIVE); PH URINE 5.5 (4.5-8.0); PROTEIN URINE NEGATIVE (NEGATIVE); SPECIFIC GRAVITY URINE 1.023 (1.005-1.030); UROBILINOGEN URINE 0.2 E.U./dL (0.2-1.0)
[2025-04-30] MEDS ORDERED: MAG355OR21 MT (19:22)
[2025-04-30 20:22] VITALS: BP 185/107; PULSE 81; RESP 18; TEMP 36.8; O2SAT 97
[2025-04-30] MEDS ORDERED: IOHEXOL-300 100 ML BOTTLE ONE (23:10)
== END 2025-04-30 20:23 | disposition home or self-care (01) ==
LOC: ER 14:07
DX: G89.29 Other chronic pain (principal); R10.84 Generalized abdominal pain; I10 Essential (primary) hypertension; E03.9 Hypothyroidism, unspecified; Z79.82 Long term (current) use of aspirin; Z79.899 Other long term (current) drug therapy; Z79.890 Hormone replacement therapy; Z88.8 Allergy status to other drugs, medicaments and biological substances
CPT/HCPCS: 80076; 80048; 81003; 80320; 83690; 85025; 36415; 74177; 99285; Q9967; G0480

== ENCOUNTER 2025-07-28 15:41 | Emergency (ER) | payer MEDICARE, MEDICAID ==
[~2025-07-28] VITALS: Ht 182.9 cm; Wt 91.0 kg
[~2025-07-28 15:41] MED LIST changes: +HYDR100T11 MT; +MAG355OR21 MT; +NIFE-71 MT
[2025-07-28 15:49] VITALS: O2SAT 97
[2025-07-28 16:56] LABS: BASOPHILS % 0.6 % (0.0-2.0); EOSINOPHILS % 3.0 % (0.0-5.0); HEMATOCRIT. 39.0 % (42.0-52.0); HEMOGLOBIN. 13.1 g/dL (14.0-18.0); LYMPHOCYTES % 36.7 % (20.0-50.0); MEAN PLATELET VOLUME 7.2 fl (7.4-10.4); MONOCYTES % 5.7 % (2.0-8.0); NEUTROPHILS % 54.0 % (40.0-76.0); PLATELET 285 x1000/uL (130-400); RED BLOOD CELL COUNT 4.39 mill/uL (4.7-6.1); RED CELL DISTRIBUTION WIDTH 14.1 % (11.6-14.6)
[2025-07-28 17:08] LABS: INR 0.9
[2025-07-28 17:18] LABS: CREATININE 1.0 mg/dL (0.6-1.3); ETHANOL BLOOD < 10 mg/dL (<10); PROTEIN TOTAL 7.0 g/dL (6.0-8.3); TROPONIN I HIGH SENSITIVITY < 4 ng/L (3.0-53); UREA NITROGEN BLOOD 11 mg/dL (9-23)
[2025-07-28 17:20] LABS: ASPARTATE AMINOTRANSFERASE 15 IU/L (<34); BILIRUBIN DIRECT 0.1 mg/dL (<=3.0); BILIRUBIN TOTAL 0.4 mg/dL (0.1-1.0)
[2025-07-28 19:05] VITALS: BP 176/104; PULSE 58; RESP 17; TEMP 36.7; O2SAT 99
[2025-08-01] MEDS ORDERED: ATOR20TA MT (15:55)
[2025-08-01] MEDS ORDERED: ASPI-1497 PO (15:55)
[2025-08-01] MEDS ORDERED: NIFE-71 MT (15:55)
[2025-08-01] MEDS ORDERED: LEVO100T9 PO (15:55)
[2025-08-01] MEDS ORDERED: HYDR100T11 MT (15:55)
== END 2025-07-28 19:23 | disposition home or self-care (01) ==
LOC: ER 15:41
DX: R00.2 Palpitations (principal); R42 Dizziness and giddiness; I10 Essential (primary) hypertension; E03.9 Hypothyroidism, unspecified; R06.02 Shortness of breath; Z79.82 Long term (current) use of aspirin; Z79.899 Other long term (current) drug therapy; Z79.890 Hormone replacement therapy; Z88.8 Allergy status to other drugs, medicaments and biological substances
CPT/HCPCS: 36415; 71045; 80048; 80076; 80320; 83735; 83880; 84484; 85025; 93005; 99285; G0480

== ENCOUNTER 2025-08-10 15:28 | Emergency (ER) | payer MEDICARE, MEDICAID ==
[~2025-08-10] VITALS: Ht 182.9 cm; Wt 107.0 kg
[~2025-08-10 15:28] MED LIST changes: -HYDR100T11 MT; -MAG355OR21 MT; -NEBI10TA10 PO; +NEBI5TAB9 PO
[2025-08-10 15:36] VITALS: TEMP 98.3; O2SAT 98
[2025-08-10 16:01] VITALS: TEMP 36.8
[2025-08-10] MEDS: SODIUM CHLORIDE 0.9% 1,000 ML IV ONE (16:45)
[2025-08-10 17:02] LABS: BASOPHILS % 0.6 % (0.0-2.0); EOSINOPHILS % 1.6 % (0.0-5.0); HEMATOCRIT. 43.8 % (42.0-52.0); HEMOGLOBIN. 14.5 g/dL (14.0-18.0); LYMPHOCYTES % 37.0 % (20.0-50.0); MEAN PLATELET VOLUME 7.5 fl (7.4-10.4); MONOCYTES % 6.0 % (2.0-8.0); NEUTROPHILS % 54.8 % (40.0-76.0); PLATELET 326 x1000/uL (130-400); RED BLOOD CELL COUNT 4.90 mill/uL (4.7-6.1); RED CELL DISTRIBUTION WIDTH 14.0 % (11.6-14.6)
[2025-08-10 17:11] LABS: CREATININE 1.0 mg/dL (0.6-1.3); UREA NITROGEN BLOOD 8 mg/dL (9-23)
[2025-08-10 17:12] LABS: PROTEIN TOTAL 8.1 g/dL (6.0-8.3)
[2025-08-10 17:13] LABS: ASPARTATE AMINOTRANSFERASE 48 IU/L (<34); BILIRUBIN TOTAL 0.4 mg/dL (0.1-1.0)
[2025-08-10 21:35] VITALS: BP 133/88; PULSE 61; RESP 18; O2SAT 95
== END 2025-08-10 21:38 | disposition home or self-care (01) ==
LOC: ER 15:28
DX: R42 Dizziness and giddiness (principal); R55 Syncope and collapse; I10 Essential (primary) hypertension; E03.9 Hypothyroidism, unspecified; Z98.890 Other specified postprocedural states; Z79.82 Long term (current) use of aspirin; Z79.890 Hormone replacement therapy; Z79.899 Other long term (current) drug therapy; Z88.8 Allergy status to other drugs, medicaments and biological substances
CPT/HCPCS: 99285; 96360; 96361; 80053; 85025; 36415; 93005; J7030